=== PATIENT | male | born 1980 | race Caucasian/White ===

== ENCOUNTER 2025-06-13 01:31 | Emergency (ER) | payer MEDICAID, SELFPAY ==
[~2025-06-13] VITALS: Ht 157.5 cm; Wt 77.3 kg
[2025-06-13] MEDS ORDERED: FLUO-365 (01:44)
[2025-06-13] MEDS ORDERED: ATIV1TAB10 PO (04:27)
[2025-06-13] MEDS: LORazepam 0.5 MG TAB PO ONE (04:36)
[2025-06-13 04:37] VITALS: BP 130/86; TEMP 97.3; O2SAT 96
== END 2025-06-13 04:40 | disposition home or self-care (01) ==
LOC: M ED 01:31
DX: F41.1 Generalized anxiety disorder (principal); F32.A Depression, unspecified; F17.200 Nicotine dependence, unspecified, uncomplicated; F12.10 Cannabis abuse, uncomplicated; Z88.0 Allergy status to penicillin; Z79.899 Other long term (current) drug therapy